=== PATIENT | female | born 1995 | race Caucasian/White ===

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

== ENCOUNTER → 2017-01-14 | Outpatient (CLI) | payer OTHER ==
[2017-01-14 18:20] VITALS: BP 105/71
--- NOTE | 2017-01-14 18:20 | Urgent Care T Sheet Gen (E) ---
Intake General Temperature (Fahrenheit): 98.8 Pulse: 78 Blood Pressure Systolic: 105 Blood Pressure Diastolic: 71 Respirations: 20 SPO2: 97 Description of Symptoms Patient presents with R sided rib pain. Patient is currently recovering from mono. States she is doing better in terms of that illness. Today notes a persistent, productive cough which has been present for a few weeks. Shortness of breath and rib pain has worsened over the past few days. States the pain is along the R lower lateral ribs. Been treating symptoms with DayQuil/NyQuil and an inhaler as needed. No fever. History of Present Illness Home Meds Active Scripts Lidocaine HCl (Xylocaine 2% Viscous)100 Ml Soln5 Ml MT Q2H W/A PRN SORE THROAT # 1 BTL Gargle and spit 5ml po q 2 hrs prn throat pain Prov:FILI SMITH 12/23/16 Respiratory Constitutional Symptoms: No syptoms reported EENTM: No symptoms reported Respiratory: Cough Short of breath Other (rib pain) All Other Systems Reviewed Remaining Systems: All other systems reviewed with negative findings Physical Exam Physical Exam General Appearance: WD/WN No apparent distress Eyes, Ears, Nose, Throat Ex: TMs normal Pharynx normal Other (nose is clear) Neck Exam: Supple Lymphadenopathy (lymph nodes are still enlarged however smaller than her previous exam.) Respiratory Exam: Lungs clear Normal breath sounds Other (no pain with anterior/posterior and lateral rib movement. pain with palpation along the distal R ribs, mostly along the lateral aspect. also tender along surrounding intermostal muscles.) Cardiovascular Exam: Regular rate, rhythm Progress/Orders Progress Note: Progress Note 2 view chest xray shows: negative for acute finding Departure Urgent Care Impression Impression: Primary Impression: Intercostal muscle pain Additional Impression: Rib pain on right side Departure Disposition: 01 HOME OR SELF-CARE Condition: Stable Referrals: TANNER MCPHERSON MD (PCP) Additional Instructions: Chest xray was negative Most likely intercostal muscular pain from excessive coughing. Discussed treatment options with the patient. She states her symptoms are improving therefore would like to treat with OTC meds including ibuprofen or Aleve for inflammation, BioFreeze topically and ice as needed Return if no better Patient understands DC instructions. All questions were answered. End of report . FILI SMITH Jan 14, 2017 17:45
== END ==
LOC: MHUC 17:24
PROVIDERS: ATTEND Physician Assistant
DX: R07.82 Intercostal pain (principal); R07.81 Pleurodynia
CPT/HCPCS: 99213

== ENCOUNTER → 2017-01-14 | Outpatient (CLI) | payer OTHER ==
--- NOTE | 2017-01-14 18:05 | Diagnostic Imaging Report ---
INDICATION: Dyspnea. EXAMINATION: Two views of the chest were obtained. FINDINGS: Single view examination of the chest fails to reveal evidence of active parenchymal pathology or pleural effusion. The cardiac silhouette is normal. IMPRESSION: Negative chest. Dictated by: Dictated on workstation # [id number]
== END ==
LOC: RAD 17:42
PROVIDERS: ATTEND Physician Assistant
DX: R06.00 Dyspnea, unspecified (principal); R07.9 Chest pain, unspecified
CPT/HCPCS: 71020